=== PATIENT | female | born 1955 | race Caucasian/White ===

== ENCOUNTER 2017-09-20 13:32 | Emergency (ER) | payer MEDICARE ==
[~2017-09-20] VITALS: Ht 162.6 cm; Wt 62.2 kg
[~2017-09-20 13:32] MED LIST: BIOFTAB PO; CAPT12.52 PO; FISH1000 PO; TAB-TAB PO
[2017-09-20] MEDS ORDERED: GADODIAMIDE PF 287 MG/ML 5 ML VIAL (for RAD MRI) IV PUSH ONE (13:33)
[2017-09-20 13:35] VITALS: BP 148/92; PULSE 77; RESP 16; TEMP 97.7; O2SAT 99
[2017-09-20] MEDS ORDERED: SODIUM CHLORIDE 0.9% FLUSH 10 ML FLUSH IVF PRN (16:45)
[2017-09-20 16:51] VITALS: O2SAT 99
--- NOTE | 2017-09-20 17:07 | PD ---
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 Cuello and Danilo brown, has a neurologist in [place], here because she states that over the last week she has had increased and back pain especially in the lumbar region, numbness over the lower lumbar segments. She states that this burning pain in the left lower back as well. She has been pooping more but denies incontinence. She denies any fevers. She has also been having headaches which she has had before. She states that she had talked to her primary care physician and was told to come to the ER last night for MRI on emergent basis. However, she was laying on the floor last night and could not get in and came in here today instead. She states that her neurosurgeon in [place] had dealt with the CSF leak by suturing her leak closed in the past. She is very difficult to understand, jumps 2 different parts of her story multiple times, and I have tried to contact her primary care doctor but was unable to because the office is closed since . Modifying Factors: None Associated Signs & Symptoms: Increase in lower back pain, numbness over the lumbar region, headache Risk Factors: History of chronic back pain, lumbar spine fusions, chronic headache, CSF leak PFSH Past Medical History Cardiac Catheterization: Yes High Cholesterol: Yes Coronary Artery Disease: Yes Influenza Vaccination: No ?: Not Past Surgical History Coronary Stent: Yes Other Surgery: Yes (multiple back surgeries) Social History Alcohol Use: No Tobacco Use: No Substance Use: No Allergies-Medications (Allergen,Severity, Reaction): Coded Allergies: Sulfa (Sulfonamide Antibiotics) (Unverified Allergy, Severe, 02/12/17) Reported Meds & Prescriptions Reported Meds & Active Scripts Active Reported Multi-Vitamin Daily (Multiple Vitamin) 1 Tab Tab 1 Tab PO DAILY [place]-3 Fish Oil/Vitamin (Fish Oil-Cholecalciferol) 1,000-1,000 Mg Cap 1 Cap PO DAILY Nabumetone 500 Mg Tab 500 Mg PO BID Prednisone 1 Mg Tab 1 Mg PO DAILY Plavix (Clopidogrel Bisulfate) 75 Mg Tab 75 Mg PO DAILY Atorvastatin (Atorvastatin Calcium) 20 Mg Tab 20 Mg PO HS Gabapentin 100 Mg Cap 100 Mg PO TID Review of Systems Except as stated in HPI: all other systems reviewed are Neg Physical Exam Narrative GENERAL: Well-developed elderly white female patient currently and no acute distress. Awake and oriented 3. She is laying on her side but is able to turn around without issues. SKIN: Focused skin assessment warm/dry. HEAD: Atraumatic. Normocephalic. EYES: Pupils equal and round. No scleral icterus. No injection or drainage. ENT: No nasal bleeding or discharge. Mucous membranes pink and moist. NECK: Trachea midline. No JVD. CARDIOVASCULAR: Regular rate and rhythm. No murmur appreciated. RESPIRATORY: No accessory muscle use. Clear to auscultation. Breath sounds equal bilaterally. GASTROINTESTINAL: Abdomen soft, non-tender, nondistended. Hepatic and splenic margins not palpable. BACK: No CVA tenderness. No rash. Tenderness on palpation of the lower lumbar segments without obvious deformities, there is a incision scar at the lower lumbar segments. I do not palpate any step-offs or deformities. No saddle anesthesia. MUSCULOSKELETAL: No obvious deformities. No clubbing. No cyanosis. No edema. NEUROLOGICAL: Awake and alert. No obvious cranial nerve deficits. Motor grossly within normal limits. Normal speech. PSYCHIATRIC: Appropriate mood and affect; insight and judgment normal. Data Data Last Documented VS Vital Signs Date Time Temp Pulse Resp B/P (MAP) Pulse Ox O2 Delivery O2 Flow Rate FiO2 09/20/17 19:09 68 16 140/80 (100) 99 Room Air 09/20/17 13:35 97.7 Orders Orders Complete Blood Count With Diff (09/20/17 16:38) Comprehensive Metabolic Panel (09/20/17 16:38) Ecg Monitoring (09/20/17 16:38) Iv Access Insert/Monitor (09/20/17 16:38) Oximetry (09/20/17 16:38) Sodium Chloride 0.9% Flush (Ns Flush) (09/20/17 16:45) Urinalysis - C+S If Indicated (09/20/17 16:38) Mri T Spine W/O Contrast (09/20/17 16:59) Mri L Spine W&W/O Contrast (09/20/17 16:59) Gadodiamide Pf Inj (Omniscan Pf Inj) (09/20/17 13:33) Labs Laboratory Tests Test 09/20/17 17:07 09/20/17 17:10 Urine Collection Type CLEAN CATCH Urine Color YELLOW Urine Turbidity CLEAR Urine pH 5.5 Urine Specific [place] 1.010 Urine Protein NEG mg/dL Urine Glucose (UA) NEG mg/dL Urine Ketones NEG mg/dL Urine Occult Blood TRACE Urine Nitrite NEG Urine Bilirubin NEG Urine Urobilinogen 0.2 MG/DL Urine Leukocyte Esterase SMALL Urine RBC 0-3 /hpf Urine WBC 3-5 /hpf Urine Squamous Epithelial Cells 0-5 /hpf Microscopic Urinalysis Comment CULT NOT INDICATED Urine Collection Time 17:07 White Blood Count 11.6 TH/MM3 Red Blood Count 5.61 MIL/MM3 Hemoglobin 16.7 GM/DL Hematocrit 49.5 % Mean Corpuscular Volume 88.2 FL Mean Corpuscular Hemoglobin 29.8 PG Mean Corpuscular Hemoglobin Concent 33.8 % Red Cell Distribution Width 13.1 % Platelet Count 245 TH/MM3 Mean Platelet Volume 9.0 FL Neutrophils (%) (Auto) 58.9 % Lymphocytes (%) (Auto) 34.3 % Monocytes (%) (Auto) 5.7 % Eosinophils (%) (Auto) 0.5 % Basophils (%) (Auto) 0.6 % Neutrophils # (Auto) 6.7 TH/MM3 Lymphocytes # (Auto) 4.0 TH/MM3 Monocytes # (Auto) 0.7 TH/MM3 Eosinophils # (Auto) 0.1 TH/MM3 Basophils # (Auto) 0.1 TH/MM3 CBC Comment DIFF FINAL Differential Comment Blood Urea Nitrogen 13 MG/DL Creatinine 0.90 MG/DL Random Glucose 101 MG/DL Total Protein 8.5 GM/DL Albumin 4.4 GM/DL Calcium Level 10.0 MG/DL Alkaline Phosphatase 89 U/L Aspartate Amino Transf (AST/SGOT) 16 U/L Alanine Aminotransferase (ALT/SGPT) 27 U/L Total Bilirubin 0.5 MG/DL Sodium Level 139 MEQ/L Potassium Level 3.7 MEQ/L Chloride Level 101 MEQ/L Carbon Dioxide Level 30.7 MEQ/L Anion Gap 7 MEQ/L Estimat Glomerular Filtration Rate 63 ML/MIN [facility] Medical Decision Making Medical Screen Exam Complete: Yes Emergency Medical Condition: Yes Medical Record Reviewed: Yes Interpretation(s) Laboratory Tests Test 09/20/17 17:07 09/20/17 17:10 Urine Leukocyte Esterase SMALL (NEG) White Blood Count 11.6 TH/MM3 (4.0-11.0) Red Blood Count 5.61 MIL/MM3 (4.00-5.30) Hemoglobin 16.7 GM/DL (11.6-15.3) Hematocrit 49.5 % (35.0-46.0) Total Protein 8.5 GM/DL (6.4-8.2) Estimat Glomerular Filtration Rate 63 ML/MIN (>89) Differential Diagnosis Acute on chronic back pain versus lumbar radiculopathy versus sciatica versus CSF leak Narrative Course Lab work was fairly unremarkable. Vital signs are stable. MRI was ordered for further evaluation as per patient's primary care physician request. Physician Communication Physician Communication Case signed out to Dr. Lopes at 7 PM pending MRI. Diagnosis Primary Impression: Acute exacerbation of chronic low back pain Condition: Stable Esperanza Bradshaw MD Sep 20, 2017 17:07
[2017-09-20 17:23] LABS: BILIRUBIN, URINE NEG (NEG); BLOOD, URINE TRACE (NEG); GLUCOSE,URINE NEG (NEG); KETONE, URINE NEG (NEG); NITRITE,URINE NEG (NEG); PH, URINE 5.5 (5.0-8.5); URINE COLOR YELLOW (YELLW/STRAW); URINE LEUKOCYTE ESTERASE SMALL (NEG)
[2017-09-20 17:24] LABS: AUTOMATED NEUTROPHIL # 6.7 TH/MM3 (1.8-7.7); BASOPHIL # 0.1 TH/MM3 (0-0.2); BASOPHIL % 0.6 % (0.0-2.0); EOSINOPHIL # 0.1 TH/MM3 (0-0.4); EOSINOPHIL % 0.5 % (0.0-4.0); HEMATOCRIT 49.5 % (35.0-46.0); HEMOGLOBIN 16.7 GM/DL (11.6-15.3); LYMPH % 34.3 % (9.0-44.0); MEAN CELL VOLUME 88.2 FL (80.0-100.0); MEAN CORPUSCULAR HEMOGLOBIN 29.8 PG (27.0-34.0); MEAN CORPUSCULAR HGB CONC 33.8 % (32.0-36.0); MONO % 5.7 % (0.0-8.0); MONOCYTE # 0.7 TH/MM3 (0-0.9); NEUT % 58.9 % (16.0-70.0); PLATELET COUNT 245 TH/MM3 (150-450); RED BLOOD COUNT 5.61 MIL/MM3 (4.00-5.30); RED CELL DISTRIBUTION WIDTH 13.1 % (11.6-17.2); WHITE BLOOD COUNT 11.6 TH/MM3 (4.0-11.0)
[2017-09-20 17:32] LABS: CHLORIDE 101 MEQ/L (98-107); SODIUM (NA) 139 MEQ/L (136-145)
[2017-09-20 17:34] LABS: RBC, URINE 0-3 /hpf (0-3); SQUAMOUS EPITHELIAL CELL URINE 0-5 /hpf (0-5)
[2017-09-20 17:35] LABS: ALBUMIN 4.4 GM/DL (3.4-5.0)
[2017-09-20 17:36] LABS: BICARBONATE 30.7 MEQ/L (21.0-32.0); BLOOD UREA NITROGEN 13 MG/DL (7-18); GLUCOSE,RANDOM 101 MG/DL (74-106)
[2017-09-20 17:39] LABS: ALT (GPT) 27 U/L (10-53); AST (GOT) 16 U/L (15-37); GLOMERULAR FILTRATION RATE 63 ML/MIN (>89)
[2017-09-20 17:40] LABS: TOTAL BILIRUBIN ADULT 0.5 MG/DL (0.2-1.0); TOTAL PROTEIN 8.5 GM/DL (6.4-8.2)
[2017-09-20 17:42] LABS: ALKALINE PHOSPHATASE 89 U/L (45-117)
[2017-09-20] MEDS ORDERED: PRED1 PO (18:58)
[2017-09-20] MEDS ORDERED: PLAV75TA29 PO (18:58)
[2017-09-20] MEDS ORDERED: ATOR20TA15 PO (18:58)
[2017-09-20] MEDS ORDERED: OMEGCAP PO (18:58)
[2017-09-20] MEDS ORDERED: GABA100C4 PO (18:58)
[2017-09-20] MEDS ORDERED: NABU1TAB37 PO (18:58)
[2017-09-20] MEDS ORDERED: MULT-65 PO (18:58)
[2017-09-20 19:09] VITALS: BP 140/80; PULSE 68; RESP 16; O2SAT 99
--- NOTE | 2017-09-20 19:17 | PD ---
Physical Exam Date Seen by Provider: Sep 20, 2017 Time Seen by Provider: 19:16 Narrative Accepted in transfer of care from Dr Bradshaw GENERAL: Well-developed well-nourished female no acute distress no respiratory distress without antalgic movement waiting comfortably for imaging results Data Data Last Documented VS Vital Signs Date Time Temp Pulse Resp B/P (MAP) Pulse Ox O2 Delivery O2 Flow Rate FiO2 09/20/17 19:09 68 16 140/80 (100) 99 Room Air 09/20/17 13:35 97.7 Orders Orders Complete Blood Count With Diff (09/20/17 16:38) Comprehensive Metabolic Panel (09/20/17 16:38) Ecg Monitoring (09/20/17 16:38) Iv Access Insert/Monitor (09/20/17 16:38) Oximetry (09/20/17 16:38) Sodium Chloride 0.9% Flush (Ns Flush) (09/20/17 16:45) Urinalysis - C+S If Indicated (09/20/17 16:38) Mri T Spine W/O Contrast (09/20/17 16:59) Mri L Spine W&W/O Contrast (09/20/17 16:59) Gadodiamide Pf Inj (Omniscan Pf Inj) (09/20/17 13:33) Labs Laboratory Tests Test 09/20/17 17:07 09/20/17 17:10 Urine Collection Type CLEAN CATCH Urine Color YELLOW Urine Turbidity CLEAR Urine pH 5.5 Urine Specific [place] 1.010 Urine Protein NEG mg/dL Urine Glucose (UA) NEG mg/dL Urine Ketones NEG mg/dL Urine Occult Blood TRACE Urine Nitrite NEG Urine Bilirubin NEG Urine Urobilinogen 0.2 MG/DL Urine Leukocyte Esterase SMALL Urine RBC 0-3 /hpf Urine WBC 3-5 /hpf Urine Squamous Epithelial Cells 0-5 /hpf Microscopic Urinalysis Comment CULT NOT INDICATED Urine Collection Time 17:07 White Blood Count 11.6 TH/MM3 Red Blood Count 5.61 MIL/MM3 Hemoglobin 16.7 GM/DL Hematocrit 49.5 % Mean Corpuscular Volume 88.2 FL Mean Corpuscular Hemoglobin 29.8 PG Mean Corpuscular Hemoglobin Concent 33.8 % Red Cell Distribution Width 13.1 % Platelet Count 245 TH/MM3 Mean Platelet Volume 9.0 FL Neutrophils (%) (Auto) 58.9 % Lymphocytes (%) (Auto) 34.3 % Monocytes (%) (Auto) 5.7 % Eosinophils (%) (Auto) 0.5 % Basophils (%) (Auto) 0.6 % Neutrophils # (Auto) 6.7 TH/MM3 Lymphocytes # (Auto) 4.0 TH/MM3 Monocytes # (Auto) 0.7 TH/MM3 Eosinophils # (Auto) 0.1 TH/MM3 Basophils # (Auto) 0.1 TH/MM3 CBC Comment DIFF FINAL Differential Comment Blood Urea Nitrogen 13 MG/DL Creatinine 0.90 MG/DL Random Glucose 101 MG/DL Total Protein 8.5 GM/DL Albumin 4.4 GM/DL Calcium Level 10.0 MG/DL Alkaline Phosphatase 89 U/L Aspartate Amino Transf (AST/SGOT) 16 U/L Alanine Aminotransferase (ALT/SGPT) 27 U/L Total Bilirubin 0.5 MG/DL Sodium Level 139 MEQ/L Potassium Level 3.7 MEQ/L Chloride Level 101 MEQ/L Carbon Dioxide Level 30.7 MEQ/L Anion Gap 7 MEQ/L Estimat Glomerular Filtration Rate 63 ML/MIN [facility] Medical Record Reviewed: Yes Supervised Visit with CAM[place]: No Interpretation(s) T-MRI: CONCLUSION: Normal examination for a patient of this age. Vasquez Gallegos MD on September 20, 2017 at 19:31 Board Certified Radiologist. This report was verified electronically. L-MRI: FINDINGS: No abnormal enhancing lesions identified within the lumbar canal. Postoperative changes noted posteriorly at L4 and L5. No canal stenosis with right nerve root compression. Minimal anterolisthesis of L4 on L5 which appears chronic. CONCLUSION: 1. No acute findings. No abnormal enhancement. No significant canal stenosis. Conus is intact. Postop changes L4-5. Vasquez Gallegos MD on September 20, 2017 at 19:33 Board Certified Radiologist. This report was verified electronically. Differential Diagnosis Accepted in transfer of care from Dr Bradshaw; please refer to her dictation Narrative Course Accepted in transfer of care from Dr Bradshaw; follow up MRI and disposition At 7:50 PM imaging studies resulted without acute abnormality; this information has been shared with the patient patient is encouraged to follow-up with her managing provider. Patient request prescription for nausea. Patient provided prescription for Zofran ODT 4 mg. Diagnosis Primary Impression: Acute exacerbation of chronic low back pain Referrals: Primary Care Physician call for appointment Patient Instructions: General Instructions Additional Instruction: Follow-up with your managing provider Return to the emergency department as needed May take as tolerated acetaminophen per package instructions for discomfort or for fever 100.4F or greater Take Zofran 4 mg ODT as prescribed as needed for nausea and/or vomiting Med/Other Pt SpecificInfo: Prescription(s) given, No Change to Meds Scripts Ondansetron Odt (Zofran Odt) 4 Mg Tab 4 MG SL Q6HR Y for Nausea/Vomiting, #10 TAB 0 Refills Prov: Lydia Lopes MD 09/20/17 Disposition: 01 DISCHARGE HOME Condition: Stable Lydia Lopes MD Sep 20, 2017 19:17
--- NOTE | 2017-09-20 19:35 | RADRPT ---
EXAM DATE/TIME: 09/20/2017 18:21 [facility] COMPARISON: No previous studies available for comparison. INDICATIONS : Pain. MEDICAL HISTORY : None. SURGICAL HISTORY : Fusion, lumbar. Hysterectomy. Coronary artery stent. ENCOUNTER: Initial ACUITY: 2 day PAIN SCORE: 4/10 LOCATION: T-spine TECHNIQUE: Multiplanar multisequence MRI of the thoracic spine was performed. FINDINGS: VERTEBRA: Normal vertebral body height. Homogeneous marrow signal. ALIGNMENT: Normal. CORD: Normal position and configuration. T1-T2: Normal. T2-T3: The thecal sac has a normal diameter. No evidence of disc bulge or protrusion. T3-T4: The thecal sac has a normal diameter. No evidence of disc bulge or protrusion. T4-T5: The thecal sac has a normal diameter. No evidence of disc bulge or protrusion. T5-T6: The thecal sac has a normal diameter. No evidence of disc bulge or protrusion. T6-T7: The thecal sac has a normal diameter. No evidence of disc bulge or protrusion. T7-T8: The thecal sac has a normal diameter. No evidence of disc bulge or protrusion. T8-T9: The thecal sac has a normal diameter. No evidence of disc bulge or protrusion. T9-T10: The thecal sac has a normal diameter. No evidence of disc bulge or protrusion. T10-T11: The thecal sac has a normal diameter. No evidence of disc bulge or protrusion. T11-T12: The thecal sac has a normal diameter. No evidence of disc bulge or protrusion. T12-L1: The thecal sac has a normal diameter. No evidence of disc bulge or protrusion. CONCLUSION: Normal examination for a patient of this age. Vasquez Gallegos MD on September 20, 2017 at 19:31 Board Certified Radiologist. This report was verified electronically.
--- NOTE | 2017-09-20 19:39 | RADRPT ---
EXAM DATE/TIME: 09/20/2017 18:21 [facility] COMPARISON: No previous studies available for comparison. INDICATIONS : Pain. CONTRAST: 12 cc Omniscan (gadodiamide) IV MEDICAL HISTORY : None. SURGICAL HISTORY : Fusion, thoracic. Cholecystectomy. Hysterectomy. ENCOUNTER: Initial ACUITY: 2 day PAIN SCORE: 5/10 LOCATION: back TECHNIQUE: Multiplanar multisequence MRI of the lumbar spine was performed with and without contrast. FINDINGS: No abnormal enhancing lesions identified within the lumbar canal. Postoperative changes noted posteri lester at L4 and L5. No canal stenosis with right nerve root compression. Minimal anterolisthesis of L4 on L5 which appears chronic. CONCLUSION: 1. No acute findings. No abnormal enhancement. No significant canal stenosis. Conus is intact. Postop changes L4-5. Vasquez Gallegos MD on September 20, 2017 at 19:33 Board Certified Radiologist. This report was verified electronically.
[2017-09-20] MEDS ORDERED: ZOFR4TAB3 SL (19:55)
== END 2017-09-20 20:18 | disposition home or self-care (01) ==
LOC: PHED 13:32
DX: M54.5 Low back pain (principal); G89.29 Other chronic pain; R20.0 Anesthesia of skin; R51 Headache; E78.00 Pure hypercholesterolemia, unspecified; I25.10 Atherosclerotic heart disease of native coronary artery without angina pectoris; Z98.1 Arthrodesis status
CPT/HCPCS: 72146; 72158; 80053; 81001; 85025; 99284; A9579